=== PATIENT | male | born 1975 | race American Indian/Alaskan Native ===

== ENCOUNTER 2017-02-08 07:24 | Emergency (ER) | payer BC, OTHER ==
[2017-02-08 08:03] VITALS: BP 134/77
--- NOTE | 2017-02-08 08:41 | EDM.PDOC ---
ED HPI Trauma - General Chief Complaint: Lower Extremity Injury/Pain Stated Complaint: [id number] RIGHT FOOT Time Seen by Provider: 02/08/17 08:35 Source: Reports: Patient History Limitations: Reports: No limitations - History of Present Illness INITIAL COMMENTS - FREE TEXT/NARRATIVE: 41 yo [place] male c/o pain post surgical right foot pain since 2016. 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 No drainage and No fever or chills Symptom Onset Date: 02/05/17 Symptom Onset Time: 12:00 Occurred When: last week Occurred Where: home Method of Injury: other (s/p right foot surgery) Severity: moderate Pain/Injury Location: Reports: lower extremity, right (right foot) Consciousness: Reports: no loss of consciousness Associated Symptoms: Reports: no other symptoms Allergies/ADRs: Allergies codeine Allergy (Verified 02/08/17 07:56) Hives Home Medications: Ambulatory Orders Ibuprofen 3 tab PO Q6HR PRN 02/08/17 [Confirmed 02/08/17] Past Medical History HEENT History: Reports: Impaired vision Musculoskeletal History: Reports: Back pain, chronic, Fracture Other Musculoskeletal History: fx collarbone - Past Surgical History HEENT Surgical History: Reports: Tonsillectomy GI Surgical History: Reports: Appendectomy Social & Family History - Family History Family Medical History: Noncontributory - Tobacco Use Smoking Status *Q: Current Every Day Smoker Years of Tobacco use: 19 Packs/Tins Daily: 0.5 - Caffeine Use Caffeine Use: Reports: None - Recreational Drug Use Recreational Drug Use: No - Living Situation & Occupation Occupation: employed Review of Systems - Review of Systems Review Of Systems: See Below Constitutional: Reports: no symptoms Eyes: Reports: no symptoms Ears: Reports: no symptoms Nose: Reports: no symptoms Mouth/Throat: Reports: no symptoms Respiratory: Reports: No Symptoms Cardiovascular: Reports: no symptoms GI/Abdominal: Reports: No symptoms Genitourinary: Reports: no symptoms Musculoskeletal: Reports: foot pain (right foot post surgical 12/31/2016) Skin: Reports: wound (healed ) Neurological: Reports: No Symptoms Psychiatric: Reports: no symptoms Trauma Exam - Physical Exam Exam: See Below Exam Limited By: No limitations General Appearance: Reports: alert, WD/WN, no apparent distress Head: Reports: atraumatic Eyes: bilateral eye: EOMI Ears: Reports: normal external exam Nose: Reports: normal inspection Throat/Mouth: Reports: Normal inspection, Normal voice Neck: Reports: non-tender, full range of motion Respiratory Exam: Reports: no respiratory distress, lungs clear Cardiovascular: Reports: normal peripheral pulses, regular rate, rhythm GI/Abdominal: Reports: normal bowel sounds Back: Reports: full range of motion Extremities: Reports: tenderness (right foot plantar area w/ tender scar) Neurologic: 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, no motor/sensory deficits, alert , normal mood/affect, oriented x 3 Skin: Reports: Normal color, Other (tender healed scar) Course - Vital Signs Last Recorded V/S: Last Vital Signs Temp 36.5 C 02/08/17 07:57 Pulse 91 02/08/17 07:57 Resp 20 02/08/17 07:57 BP 134/77 02/08/17 07:57 Pulse Ox 99 02/08/17 07:57 - Orders/Labs/Meds Orders: Active Orders 24 hr Category Date Time Status Foot 2V Rt [CR] Urgent Exams 02/08/17 08:42 Ordered Meds: Medications Discontinued Medications Generic Name Dose Route Start Last Admin Trade Name Freq PRN Reason Stop Dose Admin Tramadol HCl 100 mg 02/08/17 08:42 02/08/17 09:02 Ultram PO 02/08/17 08:43 100 mg ONETIME ONE Administration Departure - Departure Time of Disposition: 09:49 Disposition: Home, Self-Care 01 Condition: good Clinical Impression: Acute postoperative pain of right foot Instructions: Pain Medicine Instructions, [id number] Forms: ED Department Discharge Additional Instructions: Rest Apply Ice pack to area of pain TID X 15mins. Take the pain medicine as prescirbed: TRAMADOL 50mg TID # 15 F/U w/ PCP for off work slip F/U Podiatry - My Orders Last 24 Hours: My Active Orders 02/08/17 08:42 Foot 2V Rt [CR] Urgent - Assessment/Plan Last 24 Hours: My Active Orders 02/08/17 08:42 Foot 2V Rt [CR] Urgent
[2017-02-08] MEDS ORDERED: traMADol 50 MG Tab PO ONE (08:42)
== END 2017-02-08 10:08 | disposition home or self-care (01) ==
LOC: DL.ED 07:24
DX: G89.18 Other acute postprocedural pain (principal); M79.671 Pain in right foot; Z98.890 Other specified postprocedural states; Z90.49 Acquired absence of other specified parts of digestive tract; F17.210 Nicotine dependence, cigarettes, uncomplicated; Z88.5 Allergy status to narcotic agent
CPT/HCPCS: 73620; 99283; A9270